=== PATIENT | female | born 2005 | race Caucasian/White ===

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

== ENCOUNTER → 2023-05-18 | Outpatient (CLI) | payer BC ==
--- NOTE | 2023-05-19 13:00 | MR ---
EXAMINATION TYPE: MR angio head wo con DATE OF EXAM: 05/18/2023 7:37 PM CLINICAL INDICATION:Female, 17 years old with history of G43.019 MIGRAINE W/O AURA, INTRACTABLE, [place] G 43.611; Migraines COMPARISON: MRI brain same day. 04/19/2018 Technical: 3-D [id number] Axial with MIP reconstruction created on a separate workstation.. IV Contrast: None. Findings: Vertebral arteries: The vertebral arteries are patent. Vertebral arteries are: Slightly right dominant. Basilar artery: The basilar artery is intact. The basilar artery bifurcation is normal. Internal Carotid arteries: The cervical, petrous, cavernous and supraclinoid segments are normal. JAZMIN: Patent with no evidence of aneurysm. ACOM: Present without evidence of aneurysm. MCA: Patent with no evidence of aneurysm. ICT BUSINESS DEVELOPMENT MANAGER: Patent with no evidence of aneurysm. PCOM: Hypoplastic bilaterally. Left internal auditory Canal type II vascular loop. IMPRESSION: 1. No evidence of aneurysm or significant stenosis. 2. Left internal auditory Canal type II vascular loop.
--- NOTE | 2023-05-19 13:31 | MR ---
EXAMINATION TYPE: MR brain wo con DATE OF EXAM: 05/18/2023 7:38 PM CLINICAL INDICATION:Female, 17 years old with history of G43.019 MIGRAINE W/O AURA, INTRACTABLE, [place] G 43.611; Migraines COMPARISON: 04/19/2018. TECHNIQUE: Multi planar, multi sequence imaging was performed through the brain including: T1, T2, In version recovery, Diffusion weighted imaging, and gradient echo imaging. No gadolinium was given. FINDINGS: The moore-white junctions, ventricular system, basal cisterns appear unremarkable. Midline structures show no abnormality. Diffusion-weighted imaging shows no evidence of restricted diffusion. The suscep tibility weighted images do not reveal any evidence for micro-hemorrhage. The bone marrow signal is within normal limits. Paranasal sinuses and mastoid air cells: Moderate paranasal sinus mucosal thickening. Visualized orbits: Orbital contents are intact. Similar low T1 and higher T2 signal lesion in the left tongue. This is only seen on a couple of the s equences. There is a prominent pituitary gland without discrete lesion with convex on top morphology. There is low-lying cerebellar tonsils bilaterally extending 8 mm below the foramen magnum. Additional ly there is a decreased mamillary pontine distance IMPRESSION: 1. 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 Findings raise concern for intracranial hypotension given history of headaches. Correlate for history of facial trauma or histo ry of spinal surgery, further imaging of the entire spine may be of benefit to rule out CSF leak. 2. There is a prominent pituitary gland without discrete lesion with convex on top morphology. This c ould be secondary to #1. This can also be normal for patient's age group. This is not significantly c hanged from prior in 2019. Consider laboratory analysis and follow-up if patient symptoms persist.
== END | disposition home or self-care (01) ==
LOC: RADMRIMAIN 13:56
PROVIDERS: ATTEND Psychiatry & Neurology Neurology
DX: H83.8X2 Other specified diseases of left inner ear (principal); G43.019 Migraine without aura, intractable, without status migrainosus; G43.61 Persistent migraine aura with cerebral infarction, intractable; R42 Dizziness and giddiness; R55 Syncope and collapse
CPT/HCPCS: 70544; 70551